=== PATIENT | male | born 1970 | race Caucasian/White ===

== ENCOUNTER 2024-07-13 17:16 | Observation (INO) | payer BC, OTHER ==
[2024-07-13 17:42] LABS: Absolute Neutrophil Ct (ANC) 7.11 x10^3/uL (1.78-5.38); BASOPHIL % 0.3 % (0.2-1.2); Basophil (Absolute #) 0.03 x10^3/uL (0.01-0.08); Eosinophil % 1.5 % (0.8-7.0); Eosinophil (Absolute #) 0.15 x10^3/uL (0.04-0.54); Hematocrit 42.8 % (40.1-51.0); Hemoglobin 14.4 g/dL (13.7-17.5); IMMATURE GRAN # 0.04 x10^3u/L (0.001-0.031); IMMATURE GRAN % 0.4 % (0.001-0.429); Lymphocytes % 20.2 % (21.8-53.1); Mean Cell Volume 92.2 fL (79.0-92.2); Mean Corpuscular Hgb Concent. 33.6 g/dL (32.3-36.5); Mean Platelet Volume 10.1 fL (9.4-12.4); Monocyte (Absolute #) 0.55 x10^3/uL (0.30-0.82); Monocytes % 5.6 % (5.3-12.2); Platelet Count 217 x10^3/uL (163-337); Red Blood Count 4.64 x10^6/uL (4.63-6.08); Red Cell Distribution Width 14.6 % (11.6-14.4); White Blood Count 9.9 x10^3/uL (4.23-9.07)
[2024-07-13 18:17] LABS: ALBUMIN 4.1 g/dL (3.5-5.0); ANION GAP 11.4 MEQ/L (5-15); BILIRUBIN,TOTAL 0.5 mg/dL (0.2-1.3); Calcium 9.3 mg/dL (8.4-10.2); Creatinine 1 0.64 mg/dL (0.66-1.25); EST GLOMERULAR FILTRATION RATE 111.8 ML/MIN; Potassium 4.5 mmol/L (3.5-5.1); Total Protein 6.5 g/dL (6.3-8.2)
--- NOTE | 2024-07-13 19:07 | ERPHSYRPT ---
- History of Present Illness Source: patient Exam Limitations: no limitations Patient Subjective Stated Complaint: C/O Chest pain. Severity changes but pain never completely resolves. Triage Nursing Assessment: Patient ambulated back to ER without difficulties. Face is flushed with a rash noted to chest; patient states this is better and is a side effect from his chemo. No SOB. TATE WNL. No edema. Rivera noted to left chest; used for chemo (Dr. Delong) Hx Influenza Vaccination/Date Given: No Hx Pneumococcal Vaccination/Date Given: No <ANGLE SRINIVASAN - Last Filed: 07/13/24 19:03> <JESSY MAC - Last Filed: 07/13/24 22:36> - History of Present Illness Time Seen by Provider: 07/13/24 17:22 Physician History: Patient is here with midsternal chest pain, has been going on for 2 to 3 days. Patient states that it radiates between his shoulders and radiates into his back. No falls or trauma. Patient is a stage IV cancer patient. He does have a Rivera line in place. Most recently received chemo 3 days ago. No other falls or trauma. He does have colon cancer. No fever here. (ANGLE SRINIVASAN) Allergies/Adverse Reactions: No Known Drug Allergies Allergy (Verified 07/13/24 17:24) Home Medications: Doxycycline Hyclate 100 mg [Vibramycin 100 MG] 100 mg PO BID 07/13/24 [History] Ondansetron [Ondansetron Odt ] 4 mg PO Q6H PRN PRN 07/13/24 [History] Tramadol HCl 50 mg [Ultram 50 mg] 100 mg PO Q6H PRN PRN 07/13/24 [History] Travel Risk - International Travel Have you traveled outside of the country in past 3 weeks: No - Emerging Infectious Disease Are you exhibiting symptoms associated with any current EIDs: No <ANGLE SRINIVASAN - Last Filed: 07/13/24 19:03> - Past Medical History Pertinent Past Medical History: Yes Cardiac History: Hypertension Musculoskeletal History: Fractures GI Medical History: Colorectal Cancer Other Medical History: liver masses - Past Surgical History Past Surgical History: Yes Gastrointestinal: Colon Resection Other Surgical History: RIVERA placed for Chemo - Social History Smoking Status: Never smoker Exposure to second hand smoke: No Drug Use: none - Social Determinants of Health Will the patient participate in the screening: Yes Do you worry about a steady place to live?: No Do you have any problems with any of the following?: No known problems In the past 12 months,have you had to go without utilities?: No Transportation Issues: No Has anyone in your support network made you feel unsafe?: No Have you or anyone in your house had to go without enough: No <ANGLE SRINIVASAN - Last Filed: 07/13/24 19:03> - Physical Exam SpO2: 96 <ANGLE SRINIVASAN - Last Filed: 07/13/24 19:03> - Nursing Vital Signs Nursing Vital Signs: Initial Vital Signs Temperature 98 F 07/13/24 17:16 Pulse Rate 93 H 07/13/24 17:16 Respiratory Rate 18 07/13/24 17:16 Blood Pressure 151/108 07/13/24 17:16 O2 Sat by Pulse Oximetry 93 L 07/13/24 17:16 Pain Scale Pain Intensity 3 - Physical Exam Comments: 07/13/24 19:04 Review of Systems Constitutional: Negative for fever. HENT: Negative for congestion. Respiratory: Negative for shortness of breath. Cardiovascular: Chest pain Gastrointestinal: Negative for abdominal pain. Genitourinary: Negative for dysuria. Musculoskeletal: Negative for back pain. Skin: Negative for rash. Neurological: Negative for headaches. Psychiatric/Behavioral: Negative for behavioral problems. All other systems reviewed and are negative. Physical Exam Vitals signs and nursing note reviewed. Constitutional: Appearance: Patient is well-developed. HENT: Head: Normocephalic and atraumatic. Eyes: Conjunctiva/sclera: Conjunctivae normal. Neck: Musculoskeletal: Normal range of motion. Trachea: No tracheal deviation. Cardiovascular: Rate and Rhythm: Normal rate. Rivera catheter in place Pulmonary: Effort: Pulmonary effort is normal. No respiratory distress. Abdominal: Palpations: Abdomen is soft. Musculoskeletal: General: No deformity. Skin: General: Skin is warm and dry. Neurological/ Psychiatric: Mental Status: Mental status, behavior, interaction with environment is appropriate for patient's age and condition (ANGLE SRINIVASAN) - Course Nursing assessment & vital signs reviewed: Yes EKG Interpreted by Me: Sinus Rhythm (Sinus rhythm, rate 89, NV interval 147, QRS 106, QTc 427, nonspecific ST changes) <ANGLE SRINIVASAN - Last Filed: 07/13/24 19:03> - CT Exams Chest CT Interpretation: Tele-radiologist Report (Normal CT PE exam) <JESSY MAC - Last Filed: 07/13/24 22:36> Ordered Tests: Active Orders 24 hr Category Date Time Status Tanning Salon Attendant STAT Care 07/13/24 17:23 Active EKG-ER Only STAT Care 07/13/24 17:23 Active EKG-ER Only STAT Care 07/13/24 19:07 Active IV Insertion STAT Care 07/13/24 17:23 Active CHEST 1 VIEW (PORTABLE) Stat Exams 07/13/24 17:23 Taken CHEST WITH CONTRAST [CT] Stat Exams 07/13/24 18:29 Taken CBC W DIFF Stat Lab 07/13/24 17:38 Completed CK-Creatinine Phosphokinase Stat Lab 07/13/24 17:38 Completed CMP Stat Lab 07/13/24 17:38 Completed D-DIMER QUANTITATIVE Stat Lab 07/13/24 17:38 Completed NT PRO BNPII Stat Lab 07/13/24 17:38 Completed TROPONIN Q4H Lab 07/13/24 17:38 Completed TROPONIN Q4H Lab 07/13/24 21:20 Completed TROPONIN Q4H Lab 07/14/24 01:30 Ordered UA W/RFX UR CULTURE Stat Lab 07/13/24 19:17 Completed Transfer Order Routine Transfer 07/13/24 Ordered Medication Summary Discontinued Medications Generic Name Dose Route Start Last Admin Trade Name Freq PRN Reason Stop Dose Admin Aspirin 81 mg 07/13/24 22:24 Aspirin 81 Mg Tab.Chew PO 07/13/24 22:25 STAT ONE Nitroglycerin 1 gm 07/13/24 22:30 Nitroglycerin 1 Gm Packet TOP 07/13/24 22:31 STAT ONE Lab/Rad Data: Laboratory Result Diagrams 07/13/24 17:38 07/13/24 17:38 Laboratory Results 07/13/24 07/13/24 07/13/24 Range/Units 21:20 19:17 17:38 WBC (4.23-9.07) x10^3/uL RBC (4.63-6.08) x10^6/uL Hgb (13.7-17.5) g/dL Hct (40.1-51.0) % MCV (79.0-92.2) fL MCH (25.7-32.2) pg MCHC (32.3-36.5) g/dL RDW (11.6-14.4) % Plt Count (163-337) x10^3/uL MPV (9.4-12.4) fL Gran % (34.0-67.9) % Immature Gran % (Auto) (0.001-0.429) % Nucleat RBC Rel Count (0.00-0.2) % Eos # (Auto) (0.04-0.54) x10^3/uL Immature Gran # (Auto) (0.001-0.031) x10^3u/L Absolute Lymphs (auto) (1.32-3.57) x10^3/uL Absolute Monos (auto) (0.30-0.82) x10^3/uL Absolute Nucleated RBC (0.00-0.012) x10^3u/L Lymphocytes % (21.8-53.1) % Monocytes % (5.3-12.2) % Eosinophils % (0.8-7.0) % Basophils % (0.2-1.2) % Absolute Granulocytes (1.78-5.38) x10^3/uL Basophils # (0.01-0.08) x10^3/uL D-Dimer (0.0-0.50) mg/L Sodium (135-145) mmol/L Potassium (3.5-5.1) mmol/L Chloride (98-107) mmol/L Carbon Dioxide (22-30) mmol/L Anion Gap (5-15) MEQ/L BUN (9-20) mg/dL Creatinine (0.66-1.25) mg/dL Estimated GFR ML/MIN Glucose (74-106) mg/dL Calcium (8.4-10.2) mg/dL Total Bilirubin (0.2-1.3) mg/dL AST (17-59) U/L ALT (0-50) U/L Alkaline Phosphatase (38-126) U/L Creatine Kinase (55-170) U/L Troponin I < 0.012 (0.000-0.033) ng/mL NT-Pro-B Natriuret Pep 54.2 (<300) pg/mL Serum Total Protein (6.3-8.2) g/dL Albumin (3.5-5.0) g/dL Urine Color Yellow (Yellow) Urine Appearance Clear (Clear) Urine pH 6.0 (4.6-8.0) Ur Specific [place] 1.025 (1.005-1.030) Urine Protein Negative (Negative) Urine Glucose (UA) Negative (Negative) mg/dL Urine Ketones Negative (Negative) Urine Blood Negative (Negative) Urine Nitrite Negative (Negative) Urine Bilirubin Negative (Negative) Urine Urobilinogen 0.2 (0.2) mg/dL Ur Leukocyte Esterase Negative (Negative) U Hyaline Cast (Auto) NONE SEEN (0-2) /LPF Urine Microscopic RBC 0-2 (0-5) /HPF Urine Microscopic WBC 0-2 (0-5) /HPF Ur Epithelial Cells None Seen (None Seen) /HPF Urine Bacteria None Seen (None Seen) /HPF Urine Culture Reflexed NO (NO) 07/13/24 07/13/24 07/13/24 Range/Units 17:38 17:38 17:38 WBC (4.23-9.07) x10^3/uL RBC (4.63-6.08) x10^6/uL Hgb (13.7-17.5) g/dL Hct (40.1-51.0) % MCV (79.0-92.2) fL MCH (25.7-32.2) pg MCHC (32.3-36.5) g/dL RDW (11.6-14.4) % Plt Count (163-337) x10^3/uL MPV (9.4-12.4) fL Gran % (34.0-67.9) % Immature Gran % (Auto) (0.001-0.429) % Nucleat RBC Rel Count (0.00-0.2) % Eos # (Auto) (0.04-0.54) x10^3/uL Immature Gran # (Auto) (0.001-0.031) x10^3u/L Absolute Lymphs (auto) (1.32-3.57) x10^3/uL Absolute Monos (auto) (0.30-0.82) x10^3/uL Absolute Nucleated RBC (0.00-0.012) x10^3u/L Lymphocytes % (21.8-53.1) % Monocytes % (5.3-12.2) % Eosinophils % (0.8-7.0) % Basophils % (0.2-1.2) % Absolute Granulocytes (1.78-5.38) x10^3/uL Basophils # (0.01-0.08) x10^3/uL D-Dimer 0.57 H (0.0-0.50) mg/L Sodium 137 (135-145) mmol/L Potassium 4.5 (3.5-5.1) mmol/L Chloride 102 (98-107) mmol/L Carbon Dioxide 28 (22-30) mmol/L Anion Gap 11.4 (5-15) MEQ/L BUN 16 (9-20) mg/dL Creatinine 0.64 L (0.66-1.25) mg/dL Estimated GFR 111.8 ML/MIN Glucose 109 H (74-106) mg/dL Calcium 9.3 (8.4-10.2) mg/dL Total Bilirubin 0.50 (0.2-1.3) mg/dL AST 30 (17-59) U/L ALT 32 (0-50) U/L Alkaline Phosphatase 73 (38-126) U/L Creatine Kinase 107 (55-170) U/L Troponin I < 0.012 (0.000-0.033) ng/mL NT-Pro-B Natriuret Pep (<300) pg/mL Serum Total Protein 6.5 (6.3-8.2) g/dL Albumin 4.1 (3.5-5.0) g/dL Urine Color (Yellow) Urine Appearance (Clear) Urine pH (4.6-8.0) Ur Specific [place] (1.005-1.030) Urine Protein (Negative) Urine Glucose (UA) (Negative) mg/dL Urine Ketones (Negative) Urine Blood (Negative) Urine Nitrite (Negative) Urine Bilirubin (Negative) Urine Urobilinogen (0.2) mg/dL Ur Leukocyte Esterase (Negative) U Hyaline Cast (Auto) (0-2) /LPF Urine Microscopic RBC (0-5) /HPF Urine Microscopic WBC (0-5) /HPF Ur Epithelial Cells (None Seen) /HPF Urine Bacteria (None Seen) /HPF Urine Culture Reflexed (NO) 07/13/24 Range/Units 17:38 WBC 9.9 H (4.23-9.07) x10^3/uL RBC 4.64 (4.63-6.08) x10^6/uL Hgb 14.4 (13.7-17.5) g/dL Hct 42.8 (40.1-51.0) % MCV 92.2 (79.0-92.2) fL MCH 31.0 (25.7-32.2) pg MCHC 33.6 (32.3-36.5) g/dL RDW 14.6 H (11.6-14.4) % Plt Count 217 (163-337) x10^3/uL MPV 10.1 (9.4-12.4) fL Gran % 72.0 H (34.0-67.9) % Immature Gran % (Auto) 0.4 (0.001-0.429) % Nucleat RBC Rel Count 0.0 (0.00-0.2) % Eos # (Auto) 0.15 (0.04-0.54) x10^3/uL Immature Gran # (Auto) 0.04 H (0.001-0.031) x10^3u/L Absolute Lymphs (auto) 2.00 (1.32-3.57) x10^3/uL Absolute Monos (auto) 0.55 (0.30-0.82) x10^3/uL Absolute Nucleated RBC 0.00 (0.00-0.012) x10^3u/L Lymphocytes % 20.2 L (21.8-53.1) % Monocytes % 5.6 (5.3-12.2) % Eosinophils % 1.5 (0.8-7.0) % Basophils % 0.3 (0.2-1.2) % Absolute Granulocytes 7.11 H (1.78-5.38) x10^3/uL Basophils # 0.03 (0.01-0.08) x10^3/uL D-Dimer (0.0-0.50) mg/L Sodium (135-145) mmol/L Potassium (3.5-5.1) mmol/L Chloride (98-107) mmol/L Carbon Dioxide (22-30) mmol/L Anion Gap (5-15) MEQ/L BUN (9-20) mg/dL Creatinine (0.66-1.25) mg/dL Estimated GFR ML/MIN Glucose (74-106) mg/dL Calcium (8.4-10.2) mg/dL Total Bilirubin (0.2-1.3) mg/dL AST (17-59) U/L ALT (0-50) U/L Alkaline Phosphatase (38-126) U/L Creatine Kinase (55-170) U/L Troponin I (0.000-0.033) ng/mL NT-Pro-B Natriuret Pep (<300) pg/mL Serum Total Protein (6.3-8.2) g/dL Albumin (3.5-5.0) g/dL Urine Color (Yellow) Urine Appearance (Clear) Urine pH (4.6-8.0) Ur Specific [place] (1.005-1.030) Urine Protein (Negative) Urine Glucose (UA) (Negative) mg/dL Urine Ketones (Negative) Urine Blood (Negative) Urine Nitrite (Negative) Urine Bilirubin (Negative) Urine Urobilinogen (0.2) mg/dL Ur Leukocyte Esterase (Negative) U Hyaline Cast (Auto) (0-2) /LPF Urine Microscopic RBC (0-5) /HPF Urine Microscopic WBC (0-5) /HPF Ur Epithelial Cells (None Seen) /HPF Urine Bacteria (None Seen) /HPF Urine Culture Reflexed (NO) - Progress Progress: improved Counseled pt/family regarding: lab results, diagnosis, need for follow-up, rad results <ANGLE SRINIVASAN - Last Filed: 07/13/24 19:03> <JESSY MAC - Last Filed: 07/13/24 22:36> - Progress Progress Note: 07/13/24 19:05 Differential diagnosis includes: PNA, STEMI, NSTEMI, other infection, musculoskeletal pain, pneumothorax - We'll obtain basic labs, fluids, EKG, troponin, chest x-ray - EKG shows nonspecific ST changes as above - O2 saturations consistently greater than 95%. - CXR shows no pneumonia, pneumothorax - my read Patient's D-dimer was elevated. Therefore a CTA was ordered. CTA pending at this point in time. Patient will need a second troponin, repeat EKG, CTA pending. Transfer of care to Dr. Mac at 7 PM. He will follow-up on all labs and imaging. Appropriate disposition per results and reexam of the patient. (ANGLE SRINIVASAN) Patient endorsed to Dr. Mac at approximately 7 PM at the change of shift. Dr. Mac advised to follow-up on pending CT a chest. Dr. Mac advised to make final disposition. 53-year-old male history of hypertension stage IV colorectal cancer presents to our ED for evaluation of chest pain. EKG reveals minimal ST segment elevation anteriorly. Cardiac troponin negative x 2. D-dimer positive. CTA chest negative for PE. Patient reassessed. He continues to experience ongoing chest pain. Aspirin nitro administered. Patient will be admitted for cardiac rule out. Plan of care discussed with patient. He agrees to admission to [facility] for further evaluation and treatment. Portions of this note were created with voice recognition technology. There may be grammatical, spelling, punctuation or sound alike errors Complexity of problem addressed is moderate acute complicated no critical care time. Complex of data reviewed and analyzed is extensive. Test ordered test reviewed results analyzed and correlated clinically with history and physical examination. Patient accepted by Dr. Calvo at 10:29 PM. Risk of complication and or risk of morbidity/mortality of patient management is high. Patient requires hospitalization for further evaluation and treatment. Vital stable. Time spent in the patient is approximately 20 minutes. Plan of care established for shared decision making. No social determinants of health present to impede follow-up. Portions of this note were created with voice recognition technology. There may be grammatical, spelling, punctuation or sound alike errors 07/13/24 22:32 07/13/24 22:35 (JESSY MAC) - Departure Critical Care Time: No <ANGLE SRINIVASAN - Last Filed: 07/13/24 19:03> - Departure Departure Disposition: Observation <JESSY MAC - Last Filed: 07/13/24 22:36> - Departure Clinical Impression: Acute chest pain Condition: Stable Referrals: DOCTOR,NO FAMILY [Primary Care Provider] - Follow up/PCP as directed
[2024-07-13 19:38] LABS: Appearance Clear (Clear); Bacteria None Seen /HPF (None Seen); Bilirubin Negative (Negative); Blood Negative (Negative); Epithelial Cells None Seen /HPF (None Seen); Glucose, Urine Negative (Negative); Hyaline Casts NONE SEEN /LPF (0-2); Ketones Negative (Negative); Leukocyte Esterase Negative (Negative); Nitrite Negative (Negative); Protein,Urine Dip Negative (Negative); RBC 0-2 /HPF (0-5); Specific Gravity 1.025 (1.005-1.030); Urobilinogen 0.2 mg/dL (0.2); WBC 0-2 /HPF (0-5)
[2024-07-13] MEDS: BABY ASPIRIN 81 MG CHEW PO ONE ×2 (22:34→22:40)
[2024-07-13] MEDS ORDERED: NITRO-BID 2% UD PACKETS ONE (22:37)
[2024-07-13] MEDS ORDERED: BABY ASPIRIN 81 MG CHEW ONE (22:37)
[2024-07-13] MEDS: NITRO-BID 2% UD PACKETS TOP ONE (22:40)
[2024-07-13] MEDS ORDERED: ULTRAM 50 MG PO PRN (23:55)
[2024-07-13] MEDS ORDERED: ZOFRAN ODT 4 MG PO PRN (23:56)
--- NOTE | 2024-07-14 00:25 | PCM.HP ---
History of Present Illness - Chief Complaint Chief Complaint: chest pain Date: 07/13/24 History of Present Illness: 53-year-old man with history of stage IV colon cancer, hypertension, here with chest pressure. Patient is currently on FOLFOX chemotherapy, having received his third round on Wednesday 2 days prior to admission. He notes that he frequently has some symptoms of tingling in his fingers, mild nausea, and some chest heaviness after his chemotherapy treatments. However, during this cycle, he had a more severe episode of his chest heaviness, present for the past 2-3 days, constant, not worsened with activity, relieved by tramadol, radiating to his shoulders and back, especially worse with deep inspiration, as well as some jaw pain worse with chewing. Denies dyspnea. He had an episode of diaphoresis and presyncope during episode of diarrhea while on the toilet this morning. He has no personal or family history of coronary disease. He has never smoked. - Review of Systems All Other Systems: Reviewed and Negative Medications & Allergies Home Medications: Home Medication List Doxycycline Hyclate 100 mg [Vibramycin 100 MG] 100 mg PO BID 07/13/24 [History Confirmed 07/13/24] Ondansetron [Ondansetron Odt ] 4 mg PO Q6H PRN PRN 07/13/24 [History Confirmed 07/13/24] Tramadol HCl 50 mg [Ultram 50 mg] 100 mg PO Q6H PRN PRN 07/13/24 [History Confirmed 07/13/24] Allergies/Adverse Reactions: Allergies Allergy/AdvReac Type Severity Reaction Status Date / Time No Known Drug Allergies Allergy Verified 07/13/24 17:24 - Past Medical History Past Medical History: Yes Neurological History: No Pertinent History ENT History: No Pertinent History Cardiac History: No Pertinent History Respiratory History: No Pertinent History Endocrine Medical History: No Pertinent History Musculoskelatal History: No Pertinent History GI Medical History: Colorectal Cancer History: No Pertinent History Pyscho-Social History: No Pertinent History Male Reproductive Disorders: No Pertinent History Comment: liver masses - Past Surgical History Past Surgical History: Yes Neuro Surgical History: No Pertinent History Cardiac History: No Pertinent History Respiratory Surgery: No Pertinent History GI Surgical History: Colon Resection Genitourinary Surgical Hx: No Pertinent History Male Surgical History: No Pertinent History Other Surgical History: RIVERA placed for Chemo Significant Family History: no pertinent family hx (No history of premature CAD) - Social History Smoking Status: Never smoker Exposure to second hand smoke: No Alcohol: None Drug Use: none - Social Determinants of Health Will the patient participate in the screening: Yes Do you worry about a steady place to live?: No Do you have any problems with any of the following?: No known problems In the past 12 months,have you had to go without utilities?: No Have you or anyone in your house had to go without enough: No Transportation Issues: No Has anyone in your support network made you feel unsafe?: No Does the patient want assistance with any of the above?: No - Physical Exam Vital Signs: Vital Signs - 24 hr Temp Pulse Resp BP BP Pulse Ox 07/13/24 23:56 97.3 F 98 H 22 126/80 98 07/13/24 23:06 97.3 F 98 H 22 126/80 98 07/13/24 22:00 74 14 159/96 98 07/13/24 21:30 76 25 H 145/89 97 07/13/24 21:00 78 18 150/95 96 07/13/24 20:30 79 22 149/92 96 07/13/24 20:00 75 19 150/87 95 07/13/24 19:30 78 19 145/89 98 07/13/24 19:13 85 22 149/97 97 07/13/24 19:10 86 21 149/97 96 07/13/24 19:06 96 07/13/24 19:06 85 21 98 07/13/24 18:30 85 20 145/91 96 07/13/24 18:00 73 20 140/87 95 07/13/24 17:39 81 16 150/94 97 07/13/24 17:30 90 18 149/104 99 07/13/24 17:16 98 F 93 H 18 151/108 93 L General Appearance: no apparent distress Neurologic Exam: alert, oriented x 3, cooperative, normal mood/affect Eye Exam: PERRL/EOMI, eyes nml inspection Ears, Nose, Throat Exam: moist mucous membranes Neck Exam: supple, full range of motion Respiratory Exam: normal breath sounds, lungs clear, No respiratory distress Cardiovascular Exam: regular rate/rhythm, normal heart sounds, No murmur, No edema Gastrointestinal/Abdomen Exam: No tenderness, No distention Back Exam: normal range of motion Extremity Exam: normal inspection, No joint swelling Skin Exam: normal color, No rash Results - Labs Lab/Micro Results: Lab Results-Last 24 Hours 07/13/24 07/13/24 07/13/24 Range/Units 17:38 17:38 17:38 WBC 9.9 H (4.23-9.07) x10^3/uL RBC 4.64 (4.63-6.08) x10^6/uL Hgb 14.4 (13.7-17.5) g/dL Hct 42.8 (40.1-51.0) % MCV 92.2 (79.0-92.2) fL MCH 31.0 (25.7-32.2) pg MCHC 33.6 (32.3-36.5) g/dL RDW 14.6 H (11.6-14.4) % Plt Count 217 (163-337) x10^3/uL MPV 10.1 (9.4-12.4) fL Gran % 72.0 H (34.0-67.9) % Immature Gran % (Auto) 0.4 (0.001-0.429) % Nucleat RBC Rel Count 0.0 (0.00-0.2) % Eos # (Auto) 0.15 (0.04-0.54) x10^3/uL Immature Gran # (Auto) 0.04 H (0.001-0.031) x10^3u/L Absolute Lymphs (auto) 2.00 (1.32-3.57) x10^3/uL Absolute Monos (auto) 0.55 (0.30-0.82) x10^3/uL Absolute Nucleated RBC 0.00 (0.00-0.012) x10^3u/L Lymphocytes % 20.2 L (21.8-53.1) % Monocytes % 5.6 (5.3-12.2) % Eosinophils % 1.5 (0.8-7.0) % Basophils % 0.3 (0.2-1.2) % Absolute Granulocytes 7.11 H (1.78-5.38) x10^3/uL Basophils # 0.03 (0.01-0.08) x10^3/uL D-Dimer 0.57 H (0.0-0.50) mg/L Sodium 137 (135-145) mmol/L Potassium 4.5 (3.5-5.1) mmol/L Chloride 102 (98-107) mmol/L Carbon Dioxide 28 (22-30) mmol/L Anion Gap 11.4 (5-15) MEQ/L BUN 16 (9-20) mg/dL Creatinine 0.64 L (0.66-1.25) mg/dL Estimated GFR 111.8 ML/MIN Glucose 109 H (74-106) mg/dL Calcium 9.3 (8.4-10.2) mg/dL Total Bilirubin 0.50 (0.2-1.3) mg/dL AST 30 (17-59) U/L ALT 32 (0-50) U/L Alkaline Phosphatase 73 (38-126) U/L Creatine Kinase 107 (55-170) U/L Troponin I (0.000-0.033) ng/mL NT-Pro-B Natriuret Pep (<300) pg/mL Serum Total Protein 6.5 (6.3-8.2) g/dL Albumin 4.1 (3.5-5.0) g/dL Urine Color (Yellow) Urine Appearance (Clear) Urine pH (4.6-8.0) Ur Specific [place] (1.005-1.030) Urine Protein (Negative) Urine Glucose (UA) (Negative) mg/dL Urine Ketones (Negative) Urine Blood (Negative) Urine Nitrite (Negative) Urine Bilirubin (Negative) Urine Urobilinogen (0.2) mg/dL Ur Leukocyte Esterase (Negative) U Hyaline Cast (Auto) (0-2) /LPF Urine Microscopic RBC (0-5) /HPF Urine Microscopic WBC (0-5) /HPF Ur Epithelial Cells (None Seen) /HPF Urine Bacteria (None Seen) /HPF Urine Culture Reflexed (NO) 07/13/24 07/13/24 07/13/24 Range/Units 17:38 17:38 19:17 WBC (4.23-9.07) x10^3/uL RBC (4.63-6.08) x10^6/uL Hgb (13.7-17.5) g/dL Hct (40.1-51.0) % MCV (79.0-92.2) fL MCH (25.7-32.2) pg MCHC (32.3-36.5) g/dL RDW (11.6-14.4) % Plt Count (163-337) x10^3/uL MPV (9.4-12.4) fL Gran % (34.0-67.9) % Immature Gran % (Auto) (0.001-0.429) % Nucleat RBC Rel Count (0.00-0.2) % Eos # (Auto) (0.04-0.54) x10^3/uL Immature Gran # (Auto) (0.001-0.031) x10^3u/L Absolute Lymphs (auto) (1.32-3.57) x10^3/uL Absolute Monos (auto) (0.30-0.82) x10^3/uL Absolute Nucleated RBC (0.00-0.012) x10^3u/L Lymphocytes % (21.8-53.1) % Monocytes % (5.3-12.2) % Eosinophils % (0.8-7.0) % Basophils % (0.2-1.2) % Absolute Granulocytes (1.78-5.38) x10^3/uL Basophils # (0.01-0.08) x10^3/uL D-Dimer (0.0-0.50) mg/L Sodium (135-145) mmol/L Potassium (3.5-5.1) mmol/L Chloride (98-107) mmol/L Carbon Dioxide (22-30) mmol/L Anion Gap (5-15) MEQ/L BUN (9-20) mg/dL Creatinine (0.66-1.25) mg/dL Estimated GFR ML/MIN Glucose (74-106) mg/dL Calcium (8.4-10.2) mg/dL Total Bilirubin (0.2-1.3) mg/dL AST (17-59) U/L ALT (0-50) U/L Alkaline Phosphatase (38-126) U/L Creatine Kinase (55-170) U/L Troponin I < 0.012 (0.000-0.033) ng/mL NT-Pro-B Natriuret Pep 54.2 (<300) pg/mL Serum Total Protein (6.3-8.2) g/dL Albumin (3.5-5.0) g/dL Urine Color Yellow (Yellow) Urine Appearance Clear (Clear) Urine pH 6.0 (4.6-8.0) Ur Specific [place] 1.025 (1.005-1.030) Urine Protein Negative (Negative) Urine Glucose (UA) Negative (Negative) mg/dL Urine Ketones Negative (Negative) Urine Blood Negative (Negative) Urine Nitrite Negative (Negative) Urine Bilirubin Negative (Negative) Urine Urobilinogen 0.2 (0.2) mg/dL Ur Leukocyte Esterase Negative (Negative) U Hyaline Cast (Auto) NONE SEEN (0-2) /LPF Urine Microscopic RBC 0-2 (0-5) /HPF Urine Microscopic WBC 0-2 (0-5) /HPF Ur Epithelial Cells None Seen (None Seen) /HPF Urine Bacteria None Seen (None Seen) /HPF Urine Culture Reflexed NO (NO) 07/13/24 Range/Units 21:20 WBC (4.23-9.07) x10^3/uL RBC (4.63-6.08) x10^6/uL Hgb (13.7-17.5) g/dL Hct (40.1-51.0) % MCV (79.0-92.2) fL MCH (25.7-32.2) pg MCHC (32.3-36.5) g/dL RDW (11.6-14.4) % Plt Count (163-337) x10^3/uL MPV (9.4-12.4) fL Gran % (34.0-67.9) % Immature Gran % (Auto) (0.001-0.429) % Nucleat RBC Rel Count (0.00-0.2) % Eos # (Auto) (0.04-0.54) x10^3/uL Immature Gran # (Auto) (0.001-0.031) x10^3u/L Absolute Lymphs (auto) (1.32-3.57) x10^3/uL Absolute Monos (auto) (0.30-0.82) x10^3/uL Absolute Nucleated RBC (0.00-0.012) x10^3u/L Lymphocytes % (21.8-53.1) % Monocytes % (5.3-12.2) % Eosinophils % (0.8-7.0) % Basophils % (0.2-1.2) % Absolute Granulocytes (1.78-5.38) x10^3/uL Basophils # (0.01-0.08) x10^3/uL D-Dimer (0.0-0.50) mg/L Sodium (135-145) mmol/L Potassium (3.5-5.1) mmol/L Chloride (98-107) mmol/L Carbon Dioxide (22-30) mmol/L Anion Gap (5-15) MEQ/L BUN (9-20) mg/dL Creatinine (0.66-1.25) mg/dL Estimated GFR ML/MIN Glucose (74-106) mg/dL Calcium (8.4-10.2) mg/dL Total Bilirubin (0.2-1.3) mg/dL AST (17-59) U/L ALT (0-50) U/L Alkaline Phosphatase (38-126) U/L Creatine Kinase (55-170) U/L Troponin I < 0.012 (0.000-0.033) ng/mL NT-Pro-B Natriuret Pep (<300) pg/mL Serum Total Protein (6.3-8.2) g/dL Albumin (3.5-5.0) g/dL Urine Color (Yellow) Urine Appearance (Clear) Urine pH (4.6-8.0) Ur Specific [place] (1.005-1.030) Urine Protein (Negative) Urine Glucose (UA) (Negative) mg/dL Urine Ketones (Negative) Urine Blood (Negative) Urine Nitrite (Negative) Urine Bilirubin (Negative) Urine Urobilinogen (0.2) mg/dL Ur Leukocyte Esterase (Negative) U Hyaline Cast (Auto) (0-2) /LPF Urine Microscopic RBC (0-5) /HPF Urine Microscopic WBC (0-5) /HPF Ur Epithelial Cells (None Seen) /HPF Urine Bacteria (None Seen) /HPF Urine Culture Reflexed (NO) - Radiology Impressions Radiology Exams & Impressions: Radiology Procedures Category Date Time Status CHEST 1 VIEW (PORTABLE) Stat Exams 07/13/24 17:23 Taken CHEST WITH CONTRAST [CT] Stat Exams 07/13/24 18:[address] reviewed personally, no infiltrates, no edema, no consolidation. - Other Procedures and Tests Respiratory Therapy 07/13/24 23:53 EKG REPEAT IN AM Assessment/Plan (1) Acute chest pain Current Visit: Yes Status: Acute Assessment & Plan: 53-year-old man with history of stage IV colon cancer on chemotherapy, here with chest pressure. ## Chest pressure differential includes ACS, PE, MSK chest wall pain, and side effect from his chemotherapy. He has a mildly elevated D-dimer, which is not surprising given his cancer and chemotherapy, but there is no PE noted on CT chest. The pain is nonreproducible with palpation or movement, make it unlikely to be due to muscle strain. He has no personal or family history or risk factors for coronary disease other than his age. His pain is atypical for ACS, as it is not provoked by exertion or relieved by rest. His initial troponins were negative and he has no significant EKG changes. Most likely, this is a more severe version of the prior side effect he has seen from chemotherapy. However, given his risk factors, would like to observe and rule out any ACS. Place in observation Monitor on manager global serial troponins Repeat EKG Add PRN tramadol, as this has been beneficial for patient in the past ## Stage IV colon cancer currently on FOLFOX chemotherapy. Resume PRN Zofran and tramadol ## Elevated blood pressure in the setting of acute chest pain. Has been improving when pain is better controlled. Recommend follow-up with PCP for repeat ambulatory blood pressure measurement to see if meets criteria for hypertension and need for pharmacologic i ntervention. CODE STATUS: Full code Prophylaxis: No pharmacologic prophylaxis (low risk, Biju score 3), encourage ambulation Diet: Regular Dispo: Place in observation, expect discharge to home tomorrow Code(s): R07.9 - CHEST PAIN, UNSPECIFIED Telemedicine Encounter - Telemedicine Encounter Telemedicine Encounter: "The entirety of this encounter was performed via Telemedicine" This visit was performed using real-time audio and video connection between my location and thepatients locationwith the assistance of a surrogateat the patients location. Written or verbal consent was obtained from the patient/guardian to perform this visit [facility] technology. Any patient questions regarding the telemedicine interaction were answered.
[2024-07-14] MEDS: TYLENOL 325 MG PO PRN (04:29)
[2024-07-14 04:47] VITALS: O2SAT 97
[2024-07-14 05:14] LABS: Hematocrit 45.4 % (40.1-51.0); Hemoglobin 14.7 g/dL (13.7-17.5); Mean Cell Volume 93.8 fL (79.0-92.2); Mean Corpuscular Hemoglobin 30.4 pg (25.7-32.2); Mean Corpuscular Hgb Concent. 32.4 g/dL (32.3-36.5); Mean Platelet Volume 10.4 fL (9.4-12.4); Platelet Count 237 x10^3/uL (163-337); Red Blood Count 4.84 x10^6/uL (4.63-6.08); Red Cell Distribution Width 14.7 % (11.6-14.4); White Blood Count 8.3 x10^3/uL (4.23-9.07)
[2024-07-14 05:33] LABS: ANION GAP 13.1 MEQ/L (5-15); Calcium 9.7 mg/dL (8.4-10.2); Creatinine 1 0.78 mg/dL (0.66-1.25); EST GLOMERULAR FILTRATION RATE 105.3 ML/MIN; Potassium 4.2 mmol/L (3.5-5.1)
[2024-07-14] MEDS: ULTRAM 50 MG PO PRN (07:27)
[2024-07-14 08:15] VITALS: RESP 18
--- NOTE | 2024-07-14 08:48 | XRAY ---
Indication: Pneumonia. Comparison: June 26, 2017 Portable chest again demonstrates normal heart and lungs with incidental left hilar calcified nodes. New left central venous access catheter. Bony thorax intact again with mild degenerative changes. Impression: Nonacute chest with chronic features.
--- NOTE | 2024-07-14 08:48 | XRAY ---
Indication: Chest pain. Elevated d-dimer. Multiple contiguous axial images obtained through the chest using 80 cc Isovue 370 contrast and PE protocol. Comparison: None Adequate opacification pulmonary arteries including lobar and segmental branches. No pulmonary embolus. Heart not enlarged with incidental left central venous access catheter. Aorta is normal course and caliber. Small left hilar calcified nodes. No pathologic mediastinal/hilar lymphadenopathy. Lungs demonstrates mild bilateral dependent atelectasis. No suspicious pulmonary mass/nodule, infiltrate, or effusion. Bony thorax intact with mild degenerative changes throughout the spine. Limited upper abdomen demonstrates fatty liver. Right lobe liver demonstrates 1.5 cm round hypodense lesion with centripetal enhancement favoring hemangioma. Smaller subcentimeter left lobe hepatic hemangioma near dome of diaphragm. Impression: 1. Negative pulmonary embolus. No acute cardiopulmonary abnormalities. 2. Incidental chronic bony findings, fatty liver, hepatic hemangiomas, and old granulomatous disease.
--- NOTE | 2024-07-14 10:40 | PCM.DS ---
Discharge Summary Date of Admission: 07/13/24 22:54 Date of Discharge: 07/14/24 Admitting Physician: XIOMARA LLOYD MD Primary Care Provider: NO FAMILY DOCTOR Allergies Allergies No Known Drug Allergies Allergy (Verified 07/13/24 17:24) Hospital Summary - Hospital Course Hospital Course: 53-year-old man with history of stage IV colon cancer, hypertension, here with chest pressure. Patient is currently on FOLFOX chemotherapy, having received his third round on Wednesday 2 days prior to admission. He notes that he frequently has some symptoms of tingling in his fingers, mild nausea, and some chest heaviness after his chemotherapy treatments. However, during this cycle, he had a more severe episode of his chest heaviness, present for the past 2-3 days, constant, not worsened with activity, relieved by tramadol, radiating to his shoulders and back, especially worse with deep inspiration, as well as some jaw pain worse with chewing. Denies dyspnea. He had an episode of diaphoresis and presyncope during episode of diarrhea while on the toilet this morning. He has no personal or family history of coronary disease. He has never smoked. Today he has no CP or diarrhea. Trop x3 are negative. He wants to D/c today. He has a f/u appointment scheduled with oncology. He denies any further concerns at this time. - Vitals & Intake/Output Vital Signs: Vital Signs Temperature 97.8 F 07/14/24 08:00 Pulse Rate 97 H 07/14/24 08:00 Respiratory Rate 18 07/14/24 08:00 Blood Pressure 149/87 07/14/24 08:00 O2 Sat by Pulse Oximetry 97 07/14/24 08:00 Intake & Output: Intake & Output 07/11/24 07/12/24 07/13/24 07/14/24 11:59 11:59 11:59 11:59 Intake Total 880 Balance 880 Weight 110.5 kg - Lab Result Diagrams: 07/14/24 04:17 07/14/24 04:17 Lab Results-Last 24 Hrs: Lab Results-Last 24 Hours 07/13/24 07/13/24 07/13/24 Range/Units 17:38 17:38 17:38 WBC 9.9 H (4.23-9.07) x10^3/uL RBC 4.64 (4.63-6.08) x10^6/uL Hgb 14.4 (13.7-17.5) g/dL Hct 42.8 (40.1-51.0) % MCV 92.2 (79.0-92.2) fL MCH 31.0 (25.7-32.2) pg MCHC 33.6 (32.3-36.5) g/dL RDW 14.6 H (11.6-14.4) % Plt Count 217 (163-337) x10^3/uL MPV 10.1 (9.4-12.4) fL Gran % 72.0 H (34.0-67.9) % Immature Gran % (Auto) 0.4 (0.001-0.429) % Nucleat RBC Rel Count 0.0 (0.00-0.2) % Eos # (Auto) 0.15 (0.04-0.54) x10^3/uL Immature Gran # (Auto) 0.04 H (0.001-0.031) x10^3u/L Absolute Lymphs (auto) 2.00 (1.32-3.57) x10^3/uL Absolute Monos (auto) 0.55 (0.30-0.82) x10^3/uL Absolute Nucleated RBC 0.00 (0.00-0.012) x10^3u/L Lymphocytes % 20.2 L (21.8-53.1) % Monocytes % 5.6 (5.3-12.2) % Eosinophils % 1.5 (0.8-7.0) % Basophils % 0.3 (0.2-1.2) % Absolute Granulocytes 7.11 H (1.78-5.38) x10^3/uL Basophils # 0.03 (0.01-0.08) x10^3/uL D-Dimer 0.57 H (0.0-0.50) mg/L Sodium 137 (135-145) mmol/L Potassium 4.5 (3.5-5.1) mmol/L Chloride 102 (98-107) mmol/L Carbon Dioxide 28 (22-30) mmol/L Anion Gap 11.4 (5-15) MEQ/L BUN 16 (9-20) mg/dL Creatinine 0.64 L (0.66-1.25) mg/dL Estimated GFR 111.8 ML/MIN Glucose 109 H (74-106) mg/dL Calcium 9.3 (8.4-10.2) mg/dL Total Bilirubin 0.50 (0.2-1.3) mg/dL AST 30 (17-59) U/L ALT 32 (0-50) U/L Alkaline Phosphatase 73 (38-126) U/L Creatine Kinase 107 (55-170) U/L Troponin I (0.000-0.033) ng/mL NT-Pro-B Natriuret Pep (<300) pg/mL Serum Total Protein 6.5 (6.3-8.2) g/dL Albumin 4.1 (3.5-5.0) g/dL Urine Color (Yellow) Urine Appearance (Clear) Urine pH (4.6-8.0) Ur Specific [place] (1.005-1.030) Urine Protein (Negative) Urine Glucose (UA) (Negative) mg/dL Urine Ketones (Negative) Urine Blood (Negative) Urine Nitrite (Negative) Urine Bilirubin (Negative) Urine Urobilinogen (0.2) mg/dL Ur Leukocyte Esterase (Negative) U Hyaline Cast (Auto) (0-2) /LPF Urine Microscopic RBC (0-5) /HPF Urine Microscopic WBC (0-5) /HPF Ur Epithelial Cells (None Seen) /HPF Urine Bacteria (None Seen) /HPF Urine Culture Reflexed (NO) 07/13/24 07/13/24 07/13/24 Range/Units 17:38 17:38 19:17 WBC (4.23-9.07) x10^3/uL RBC (4.63-6.08) x10^6/uL Hgb (13.7-17.5) g/dL Hct (40.1-51.0) % MCV (79.0-92.2) fL MCH (25.7-32.2) pg MCHC (32.3-36.5) g/dL RDW (11.6-14.4) % Plt Count (163-337) x10^3/uL MPV (9.4-12.4) fL Gran % (34.0-67.9) % Immature Gran % (Auto) (0.001-0.429) % Nucleat RBC Rel Count (0.00-0.2) % Eos # (Auto) (0.04-0.54) x10^3/uL Immature Gran # (Auto) (0.001-0.031) x10^3u/L Absolute Lymphs (auto) (1.32-3.57) x10^3/uL Absolute Monos (auto) (0.30-0.82) x10^3/uL Absolute Nucleated RBC (0.00-0.012) x10^3u/L Lymphocytes % (21.8-53.1) % Monocytes % (5.3-12.2) % Eosinophils % (0.8-7.0) % Basophils % (0.2-1.2) % Absolute Granulocytes (1.78-5.38) x10^3/uL Basophils # (0.01-0.08) x10^3/uL D-Dimer (0.0-0.50) mg/L Sodium (135-145) mmol/L Potassium (3.5-5.1) mmol/L Chloride (98-107) mmol/L Carbon Dioxide (22-30) mmol/L Anion Gap (5-15) MEQ/L BUN (9-20) mg/dL Creatinine (0.66-1.25) mg/dL Estimated GFR ML/MIN Glucose (74-106) mg/dL Calcium (8.4-10.2) mg/dL Total Bilirubin (0.2-1.3) mg/dL AST (17-59) U/L ALT (0-50) U/L Alkaline Phosphatase (38-126) U/L Creatine Kinase (55-170) U/L Troponin I < 0.012 (0.000-0.033) ng/mL NT-Pro-B Natriuret Pep 54.2 (<300) pg/mL Serum Total Protein (6.3-8.2) g/dL Albumin (3.5-5.0) g/dL Urine Color Yellow (Yellow) Urine Appearance Clear (Clear) Urine pH 6.0 (4.6-8.0) Ur Specific [place] 1.025 (1.005-1.030) Urine Protein Negative (Negative) Urine Glucose (UA) Negative (Negative) mg/dL Urine Ketones Negative (Negative) Urine Blood Negative (Negative) Urine Nitrite Negative (Negative) Urine Bilirubin Negative (Negative) Urine Urobilinogen 0.2 (0.2) mg/dL Ur Leukocyte Esterase Negative (Negative) U Hyaline Cast (Auto) NONE SEEN (0-2) /LPF Urine Microscopic RBC 0-2 (0-5) /HPF Urine Microscopic WBC 0-2 (0-5) /HPF Ur Epithelial Cells None Seen (None Seen) /HPF Urine Bacteria None Seen (None Seen) /HPF Urine Culture Reflexed NO (NO) 07/13/24 07/14/24 07/14/24 Range/Units 21:20 01:30 04:17 WBC 8.3 (4.23-9.07) x10^3/uL RBC 4.84 (4.63-6.08) x10^6/uL Hgb 14.7 (13.7-17.5) g/dL Hct 45.4 (40.1-51.0) % MCV 93.8 H (79.0-92.2) fL MCH 30.4 (25.7-32.2) pg MCHC 32.4 (32.3-36.5) g/dL RDW 14.7 H (11.6-14.4) % Plt Count 237 (163-337) x10^3/uL MPV 10.4 (9.4-12.4) fL Gran % (34.0-67.9) % Immature Gran % (Auto) (0.001-0.429) % Nucleat RBC Rel Count (0.00-0.2) % Eos # (Auto) (0.04-0.54) x10^3/uL Immature Gran # (Auto) (0.001-0.031) x10^3u/L Absolute Lymphs (auto) (1.32-3.57) x10^3/uL Absolute Monos (auto) (0.30-0.82) x10^3/uL Absolute Nucleated RBC (0.00-0.012) x10^3u/L Lymphocytes % (21.8-53.1) % Monocytes % (5.3-12.2) % Eosinophils % (0.8-7.0) % Basophils % (0.2-1.2) % Absolute Granulocytes (1.78-5.38) x10^3/uL Basophils # (0.01-0.08) x10^3/uL D-Dimer (0.0-0.50) mg/L Sodium (135-145) mmol/L Potassium (3.5-5.1) mmol/L Chloride (98-107) mmol/L Carbon Dioxide (22-30) mmol/L Anion Gap (5-15) MEQ/L BUN (9-20) mg/dL Creatinine (0.66-1.25) mg/dL Estimated GFR ML/MIN Glucose (74-106) mg/dL Calcium (8.4-10.2) mg/dL Total Bilirubin (0.2-1.3) mg/dL AST (17-59) U/L ALT (0-50) U/L Alkaline Phosphatase (38-126) U/L Creatine Kinase (55-170) U/L Troponin I < 0.012 < 0.012 (0.000-0.033) ng/mL NT-Pro-B Natriuret Pep (<300) pg/mL Serum Total Protein (6.3-8.2) g/dL Albumin (3.5-5.0) g/dL Urine Color (Yellow) Urine Appearance (Clear) Urine pH (4.6-8.0) Ur Specific [place] (1.005-1.030) Urine Protein (Negative) Urine Glucose (UA) (Negative) mg/dL Urine Ketones (Negative) Urine Blood (Negative) Urine Nitrite (Negative) Urine Bilirubin (Negative) Urine Urobilinogen (0.2) mg/dL Ur Leukocyte Esterase (Negative) U Hyaline Cast (Auto) (0-2) /LPF Urine Microscopic RBC (0-5) /HPF Urine Microscopic WBC (0-5) /HPF Ur Epithelial Cells (None Seen) /HPF Urine Bacteria (None Seen) /HPF Urine Culture Reflexed (NO) 07/14/24 Range/Units 04:17 WBC (4.23-9.07) x10^3/uL RBC (4.63-6.08) x10^6/uL Hgb (13.7-17.5) g/dL Hct (40.1-51.0) % MCV (79.0-92.2) fL MCH (25.7-32.2) pg MCHC (32.3-36.5) g/dL RDW (11.6-14.4) % Plt Count (163-337) x10^3/uL MPV (9.4-12.4) fL Gran % (34.0-67.9) % Immature Gran % (Auto) (0.001-0.429) % Nucleat RBC Rel Count (0.00-0.2) % Eos # (Auto) (0.04-0.54) x10^3/uL Immature Gran # (Auto) (0.001-0.031) x10^3u/L Absolute Lymphs (auto) (1.32-3.57) x10^3/uL Absolute Monos (auto) (0.30-0.82) x10^3/uL Absolute Nucleated RBC (0.00-0.012) x10^3u/L Lymphocytes % (21.8-53.1) % Monocytes % (5.3-12.2) % Eosinophils % (0.8-7.0) % Basophils % (0.2-1.2) % Absolute Granulocytes (1.78-5.38) x10^3/uL Basophils # (0.01-0.08) x10^3/uL D-Dimer (0.0-0.50) mg/L Sodium 140 (135-145) mmol/L Potassium 4.2 (3.5-5.1) mmol/L Chloride 102 (98-107) mmol/L Carbon Dioxide 29 (22-30) mmol/L Anion Gap 13.1 (5-15) MEQ/L BUN 13 (9-20) mg/dL Creatinine 0.78 (0.66-1.25) mg/dL Estimated GFR 105.3 ML/MIN Glucose 98 (74-106) mg/dL Calcium 9.7 (8.4-10.2) mg/dL Total Bilirubin (0.2-1.3) mg/dL AST (17-59) U/L ALT (0-50) U/L Alkaline Phosphatase (38-126) U/L Creatine Kinase (55-170) U/L Troponin I (0.000-0.033) ng/mL NT-Pro-B Natriuret Pep (<300) pg/mL Serum Total Protein (6.3-8.2) g/dL Albumin (3.5-5.0) g/dL Urine Color (Yellow) Urine Appearance (Clear) Urine pH (4.6-8.0) Ur Specific [place] (1.005-1.030) Urine Protein (Negative) Urine Glucose (UA) (Negative) mg/dL Urine Ketones (Negative) Urine Blood (Negative) Urine Nitrite (Negative) Urine Bilirubin (Negative) Urine Urobilinogen (0.2) mg/dL Ur Leukocyte Esterase (Negative) U Hyaline Cast (Auto) (0-2) /LPF Urine Microscopic RBC (0-5) /HPF Urine Microscopic WBC (0-5) /HPF Ur Epithelial Cells (None Seen) /HPF Urine Bacteria (None Seen) /HPF Urine Culture Reflexed (NO) - Radiology Exams Ordered Rad Exams-Entire Visit: Radiology Procedures Category Date Time Status CHEST 1 VIEW (PORTABLE) Stat Exams 07/13/24 17:23 Completed CHEST WITH CONTRAST [CT] Stat Exams 07/13/24 18:29 Completed - Procedures and Test Procedures and Tests throughout Hospitalization: Therapy Orders & Screens 07/13/24 23:53 EKG REPEAT IN AM Comment: Discharge Exam General Appearance: no apparent distress, alert Neurologic Exam: alert, oriented x 3, cooperative, normal mood/affect, nml cerebellar function, sensation nml, No motor deficits Eye Exam: PERRL, EOMI, eyes nml inspection Ears, Nose, Throat Exam: normal ENT inspection, pharynx normal, moist mucous membranes Neck Exam: normal inspection, non-tender, supple, full range of motion Respiratory Exam: normal breath sounds, lungs clear, No respiratory distress Cardiovascular Exam: regular rate/rhythm, normal heart sounds Gastrointestinal/Abdomen Exam: soft, No tenderness, No mass Male Genitalia Exam: deferred Rectal Exam: deferred Back Exam: normal inspection, normal range of motion, No CVA tenderness, No vertebral tenderness Extremity Exam: normal inspection, normal range of motion Skin Exam: normal color, warm, dry Final Diagnosis/Problem List - Final Discharge Diagnosis/Problem (1) Acute chest pain Current Visit: Yes Status: Resolved Assessment & Plan: - CP resolved - Trop x3 negative - Tele - EKG - BP elevated on admission and improved today - may be related to chemo/ anxiety - Chest CT and CXR reviewed Code(s): R07.9 - CHEST PAIN, UNSPECIFIED (2) Colon cancer metastasized to liver Current Visit: Yes Status: Chronic Assessment & Plan: - receiving chemo currently OP with Dr. Braxton - F/u appointment made with oncology - CBC, CMP reviewed - PRN narcotic pain meds Code(s): C18.9 - MALIGNANT NEOPLASM OF COLON, UNSPECIFIED; C78.7 - SECONDARY MALIG NEOPLASM OF LIVER AND INTRAHEPATIC BILE DUCT (3) Fatty liver Current Visit: Yes Status: Acute Assessment & Plan: - as seen on CT scan Code(s): K76.0 - FATTY (CHANGE OF) LIVER, NOT ELSEWHERE CLASSIFIED - Discharge Discharge Date: 07/14/24 Disposition: Home, Self-Care Condition: Stable Prescriptions: Continue Tramadol HCl 50 mg [Ultram 50 mg] 100 mg PO Q6H PRN PRN PRN Reason: Pain Doxycycline Hyclate 100 mg [Vibramycin 100 MG] 100 mg PO BID Ondansetron [Ondansetron Odt ] 4 mg PO Q6H PRN PRN PRN Reason: Nausea Follow up with: DOCTOR,NO FAMILY [Primary Care Provider] -
[2024-07-14 12:48] VITALS: BP 139/85; PULSE 92; TEMP 97.6
== END 2024-07-14 12:27 | disposition home or self-care (01) ==
LOC: ED 17:16 → MED SURG 22:54
PROVIDERS: ADMIT Internal Medicine; ATTEND Internal Medicine
DX: R07.9 Chest pain, unspecified (principal); I10 Essential (primary) hypertension; C18.9 Malignant neoplasm of colon, unspecified; C78.7 Secondary malignant neoplasm of liver and intrahepatic bile duct; K76.0 Fatty (change of) liver, not elsewhere classified; Z79.899 Other long term (current) drug therapy
CPT/HCPCS: 36000; 36415; 71045; 71260; 80048; 80053; 81001; 82550; 83880; 84484; 85025; 85027; 85379; 93005; 93041; 93268; 99285; G0378; Q3014; A9270-GY